=== PATIENT | female | born 1960 | race African-American/Black ===

== ENCOUNTER 2019-04-30 08:55 | Emergency (ER) | payer MEDICAID ==
[~2019-04-30] VITALS: Ht 170.2 cm; Wt 61.0 kg
[2019-04-30] MEDS ORDERED: ACETAMINOPHEN 325MG TABLET PO STA (09:39)
[2019-04-30 11:15] VITALS: BP 116/63
== END 2019-04-30 11:31 | disposition home or self-care (01) ==
LOC: ER 08:55
DX: S63.617A Unspecified sprain of left little finger, initial encounter (principal); S09.8XXA Other specified injuries of head, initial encounter; F32.9 Major depressive disorder, single episode, unspecified; W18.39XA Other fall on same level, initial encounter; Y93.89 Activity, other specified; Y92.89 Other specified places as the place of occurrence of the external cause; Y99.8 Other external cause status
CPT/HCPCS: 73130; 82962; 93005; 99284